=== PATIENT | female | born 1970 | race Caucasian/White ===

== ENCOUNTER 2019-05-17 08:20 | Day surgery (SDC) | payer MEDICAID ==
[~2019-05-17] VITALS: Ht 172.7 cm; Wt 87.3 kg
[2019-05-17 09:09] VITALS: BP 125/83
[2019-05-17] MEDS ORDERED: DIPHENHYDRAMINE 50 MG/ML, 1ML IVPush ONE (09:30)
[2019-05-17 09:46] LABS: BASOPHILS # (AUTO) 0.02 x10^3/uL (0-0.1); BASOPHILS % (AUTO) 0 % (0-1); EOSINOPHILS # (AUTO) 0.14 x10^3/uL (0-0.4); EOSINOPHILS % (AUTO) 2 % (1-7); LYMPHOCYTES # (AUTO) 1.35 x10^3/uL (1-3.4); LYMPHOCYTES % (AUTO) 22 % (22-44); MD NO; MEAN CORPUSCULAR HEMOGLOBIN 29.7 pg (27.0-34.8); MEAN CORPUSCULAR HGB CONC 32.8 g/dL (32.4-35.8); MEAN CORPUSCULAR VOLUME 90.4 fL (80-100); MEAN PLATELET VOLUME 9.5 fL (7.4-10.4); MONOCYTES % (AUTO) 8 % (2-9); NEUTROPHILS # (AUTO) 4.09 x10^3/uL (1.8-6.8); NEUTROPHILS % (AUTO) 67 % (42-75); PLATELET COUNT 192 x10^3/uL (130-400); RED BLOOD COUNT 4.95 x10^6/uL (3.82-5.3); RED CELL DISTRIBUTION WIDTH 17.1 % (9.6-15.2)
[2019-05-17 09:53] LABS: ANION GAP 10 mmol/L (5-15); CALCIUM 9.3 mg/dL (8.5-10.1); CHLORIDE 96 mmol/L (98-107); CREATININE 0.91 mg/dL (0.55-1.02)
[2019-05-17] MEDS ORDERED: IPRA3AMP30 IH (09:57)
[2019-05-17] MEDS ORDERED: FLUT1DIS IH (09:57)
[2019-05-17] MEDS ORDERED: ALPR-475 PO (09:57)
[2019-05-17] MEDS ORDERED: FURO20TA3 PO (09:57)
[2019-05-17] MEDS ORDERED: NITR0.6T4 SL (09:57)
[2019-05-17] MEDS ORDERED: SPIR25TA5 PO (09:57)
[2019-05-17] MEDS ORDERED: RANI-448 PO (09:57)
[2019-05-17] MEDS ORDERED: ALBU18HF INH (09:57)
[2019-05-17] MEDS ORDERED: POTA20TA6 PO (09:57)
[2019-05-17] MEDS ORDERED: DIPHENHYDRAMINE 50 MG/ML, 1ML ONE (10:04)
[2019-05-17] MEDS ORDERED: LIDOCAINE 2%, 20ML ONE (11:18)
[2019-05-17] MEDS ORDERED: MIDAZOLAM 1 MG/ML, 5ML ONE (11:18)
[2019-05-17] MEDS ORDERED: FENTANYL PF 100 MCG/2ML ONE (11:18)
[2019-05-17] MEDS ORDERED: ADENOSINE IV PRN (11:30)
[2019-05-17] MEDS ORDERED: SODIUM CHLORIDE 0.9% IV PRN (11:30)
== END 2019-05-17 14:42 | disposition home or self-care (01) ==
LOC: CACL 08:20
PROVIDERS: ATTEND Internal Medicine Cardiovascular Disease
DX: I27.20 Pulmonary hypertension, unspecified (principal); J44.9 Chronic obstructive pulmonary disease, unspecified; G47.30 Sleep apnea, unspecified; E66.3 Overweight; Z68.29 Body mass index [BMI] 29.0-29.9, adult; Z99.81 Dependence on supplemental oxygen; Z79.899 Other long term (current) drug therapy; Z87.891 Personal history of nicotine dependence
CPT/HCPCS: 36415; 80048; 85025; 93451; 99156; 99157; C1894; J1200; J2250; J3010

== ENCOUNTER → 2021-06-07 | Outpatient (CLI) | payer MEDICAID ==
[~2021-06-07] MED LIST: ALBU18HF INH; ALPR0.5T7 PO; FLUT1DIS IH; FURO20TA3 PO; IPRA3AMP30 IH; NITR0.6T4 SL; POTA20TA6 PO; RANI-460 PO; SPIR25TA5 PO
== END | disposition home or self-care (01) ==
LOC: CVU 12:35
PROVIDERS: ATTEND Internal Medicine Cardiovascular Disease
DX: I37.1 Nonrheumatic pulmonary valve insufficiency (principal); I25.2 Old myocardial infarction; I27.23 Pulmonary hypertension due to lung diseases and hypoxia
CPT/HCPCS: 93306; 93356